=== PATIENT | female | born 1995 | race African-American/Black ===

== ENCOUNTER 2016-05-01 10:38 | Emergency (ER) | payer OTHER ==
[~2016-05-01] VITALS: Ht 165.1 cm; Wt 70.0 kg
[2016-05-01 10:39] VITALS: BP 111/74; PULSE 69; RESP 12; TEMP 97.5; O2SAT 97
[2016-05-01] MEDS ORDERED: SODIUM CHLOR 0.9% 1000 ML INJ 1,000 ML IV SCH (11:19)
[2016-05-01] MEDS ORDERED: ONDANSETRON HCL 4 MG/2 ML VIAL IVP ONE (11:30)
[2016-05-01] MEDS ORDERED: DICYCLOMINE HCL 20 MG/2 ML VIAL IM ONE (11:30)
[2016-05-01 12:02] LABS: AUTOMATED NEUTROPHIL # 10.7 TH/MM3 (1.8-7.7); BASOPHIL % 0.2 % (0.0-2.0); EOSINOPHIL # 0.2 TH/MM3 (0-0.4); EOSINOPHIL % 1.4 % (0.0-4.0); LYMPH % 6.7 % (9.0-44.0); LYMPHOCYTE # 0.9 TH/MM3 (1.0-4.8); MEAN CELL VOLUME 67.9 FL (80.0-100.0); MEAN CORPUSCULAR HEMOGLOBIN 22.3 PG (27.0-34.0); MEAN CORPUSCULAR HGB CONC 32.9 % (32.0-36.0); MONO % 7.7 % (0.0-8.0); PLATELET COUNT 362 TH/MM3 (150-450); RED BLOOD COUNT 5.45 MIL/MM3 (4.00-5.30); RED CELL DISTRIBUTION WIDTH 17.9 % (11.6-17.2); WHITE BLOOD COUNT 12.8 TH/MM3 (4.0-11.0)
[2016-05-01 12:04] LABS: BLOOD, URINE MOD (NEG); GLUCOSE,URINE NEG (NEG); KETONE, URINE NEG (NEG); MUCUS URINE FEW /lpf (OCC); NITRITE,URINE NEG (NEG); PH, URINE 5.5 (5.0-8.5); SQUAMOUS EPITHELIAL CELL URINE 4 /hpf (0-5); URINE COLOR YELLOW (YELLW/STRAW)
[2016-05-01 12:05] LABS: COMMENT (UR) CULT NOT INDICATED; CULTURE IF INDICATED CULT NOT INDICATED
[2016-05-01 12:07] LABS: HEMO FLAGS AUTO DIFF
[2016-05-01 12:20] LABS: ALT (GPT) 16 U/L (9-42); ANION GAP 5 MEQ/L (5-15); AST (GOT) 11 U/L (16-38); BICARBONATE 26.6 MEQ/L (21.0-32.0); BLOOD UREA NITROGEN 18 MG/DL (7-18); CHLORIDE 106 MEQ/L (98-107); GLOMERULAR FILTRATION RATE 87 ML/MIN (>89); POTASSIUM 4.2 MEQ/L (3.5-5.1); SODIUM (NA) 138 MEQ/L (136-145)
[2016-05-01 12:23] LABS: ALKALINE PHOSPHATASE 68 U/L (45-117); TOTAL BILIRUBIN ADULT 0.3 MG/DL (0.2-1.0)
[2016-05-01] MEDS ORDERED: IMOD2TAB3 PO (12:31)
--- NOTE | 2016-05-01 12:32 | PD ---
Data Data Last Documented VS Vital Signs Date Time Temp Pulse Resp B/P Pulse Ox O2 Delivery O2 Flow Rate FiO2 05/01/16 11:18 18 05/01/16 10:39 97.5 69 111/74 97 Room Air Orders Complete Blood Count With Diff (05/01/16 11:19) Comprehensive Metabolic Panel (05/01/16 11:19) Lipase (05/01/16 11:19) Urinalysis - C+S If Indicated (05/01/16 11:19) Iv Access Insert/Monitor (05/01/16 11:19) Ondansetron Inj (Zofran Inj) (05/01/16 11:30) Sodium Chlor 0.9% 1000 Ml Inj (Ns 1000 M (05/01/16 11:19) Dicyclomine Inj (Bentyl Inj) (05/01/16 11:30) Ed Urine Pregnancytest Poc (05/01/16 11:19) Labs Laboratory Tests Test 05/01/16 05/01/16 11:31 11:36 Urine Color YELLOW Urine Turbidity CLEAR Urine pH 5.5 Urine Specific [place] 1.024 Urine Protein NEG mg/dL Urine Glucose (UA) NEG mg/dL Urine Ketones NEG mg/dL Urine Occult Blood MOD Urine Nitrite NEG Urine Bilirubin NEG Urine Urobilinogen LESS THAN 2.0 MG/DL Urine Leukocyte Esterase TRACE Urine RBC LESS THAN 1 /hpf Urine WBC 1 /hpf Urine Squamous Epithelial 4 /hpf Cells Urine Mucus FEW /lpf Microscopic Urinalysis Comment CULT NOT INDICATED White Blood Count 12.8 TH/MM3 Red Blood Count 5.45 MIL/MM3 Hemoglobin 12.2 GM/DL Hematocrit 37.0 % Mean Corpuscular Volume 67.9 FL Mean Corpuscular Hemoglobin 22.3 PG Mean Corpuscular Hemoglobin 32.9 % Concent Red Cell Distribution Width 17.9 % Platelet Count 362 TH/MM3 Mean Platelet Volume 7.8 FL Neutrophils (%) (Auto) 84.0 % Lymphocytes (%) (Auto) 6.7 % Monocytes (%) (Auto) 7.7 % Eosinophils (%) (Auto) 1.4 % Basophils (%) (Auto) 0.2 % Neutrophils # (Auto) 10.7 TH/MM3 Lymphocytes # (Auto) 0.9 TH/MM3 Monocytes # (Auto) 1.0 TH/MM3 Eosinophils # (Auto) 0.2 TH/MM3 Basophils # (Auto) 0.0 TH/MM3 CBC Comment AUTO DIFF Sodium Level 138 MEQ/L Potassium Level 4.2 MEQ/L Chloride Level 106 MEQ/L Carbon Dioxide Level 26.6 MEQ/L Anion Gap 5 MEQ/L Blood Urea Nitrogen 18 MG/DL Creatinine 0.84 MG/DL Estimat Glomerular Filtration 87 ML/MIN Rate Random Glucose 87 MG/DL Calcium Level 8.8 MG/DL Total Bilirubin 0.3 MG/DL Aspartate Amino Transf 11 U/L (AST/SGOT) Alanine Aminotransferase 16 U/L (ALT/SGPT) Alkaline Phosphatase 68 U/L Total Protein 8.0 GM/DL Albumin 4.0 GM/DL Lipase 201 U/L MDM Supervised Visit with APOLINAR: Yes Narrative Course I, Dr. Arauz, have reviewed the advance practice practioner's documentation and am in agreement, met with the patient face to face, made the diagnosis, and the medical decision making was done by me. *My assessment and Findings: Healthy 20-year-old female here with nausea vomiting diarrhea. Diarrhea is her primary complaint. No abdominal pain. Abdominal examination is benign. Symptoms most consistent with gastroenteritis and less likely peritoneal pathology. Laboratory workup unremarkable patient was reassured and discharged home. Scripts Loperamide (Imodium A-D)2 Mg Tab2 Mg PO DIRECTED PRN (DIARRHEA) #18 TAB Ref 0 One tablet after each loose stool. Not to exceed 8 tablets per day. Prov:Vera Arauz MD 05/01/16 Vera Arauz MD May 01, 2016 12:32
--- NOTE | 2016-05-01 12:46 | PD ---
HPI Chief Complaint: GI Complaint Time Seen by Provider: 12:40 Travel History International Travel<30 days: No Contact w/Intl Traveler<30days: No Traveled to known affect area: No History of Present Illness HPI 20-year-old female that presents to the ED for evaluation of abdominal discomfort and nausea and vomiting as well as diarrhea. Per patient history since 6:30 this morning. Per patient nothing makes it better or worse. Per patient she's not been able to eat anything because she doesn't have an appetite and doesn't want to try anything. Vomiting has been yellow. No blood. Patient denies any blood in the stool but the stool itself is liquidy. She denies any chest pain or shortness of breath. No cough or runny nose. No fevers chills or sweats. Abdominal pain is cramping in nature. Does not radiate. Pain is 3 out of 10 and worse with bowel movements. He states having chills but no fevers or sweats. No illnesses sick. Per patient she did eat some thompson yesterday but nobody else got sick other than her. She denies any surgeries to her abdomen. She denies any other medical problems. No . No vaginal discharge or bleeding. PFSH Past Medical History Influenza Vaccination: No ?: Unknown LMP: 04/25/16 Social History Alcohol Use: No Tobacco Use: No Substance Use: No Allergies-Medications (Allergen,Severity, Reaction): Coded Allergies: No Known Allergies (Unverified , 05/01/16) Reported Meds & Prescriptions Reported Meds & Active Scripts Active Imodium A-D (Loperamide HCl) 2 Mg Tab 2 Mg PO DIRECTED PRN One tablet after each loose stool. Not to exceed 8 tablets per day. Review of Systems General / Constitutional: Positive: Chills, No: Fever, Weight Gain, Weight Loss, Other Eyes: No: Diploplia, Blurred Vision, Photophobia, Drainage, Redness, Foreign Body Sensation, Pain, Tearing, Blind Spots, Visual changes, Blindness, Other HENT: No: Headaches, Vertigo, Lightheadedness, Sore Throat, Rhinitis, Rhinorrhea, Congestion, Nosebleed, Neck Stiffness, Neck Pain, Masses, Gingival Bleeding, Dental Difficulties, Ear Discharge, Earache, Other Cardiovascular: No: Chest Pain or Discomfort, Palpitations, Irregular Rhythm, Tachycardia, Diaphoresis, Syncope, Dyspnea on exertion, Varicosities, Edema, Cyanosis, Varicosities, Phlebitis, Claudication, Other Respiratory: No: Cough, Shortness of Breath, Wheezing, Sneezing, Orthopnea, Hemoptysis, Stridor, Night Sweats, Pleuritic Pain, Other Gastrointestinal: Positive: Nausea, Vomiting, Diarrhea, Abdominal Pain, No: Hematemesis, Hematochezia, Constipation, Changes in Bowel Habits, Indigestion, Dysphagia, Loss of Appetite, Other Genitourinary: No: Urgency, Frequency, Dysuria, Nocturia, Hematuria, Decreased Urinary Output, Oliguria, Hesitancy, Dribbling, Incontinence, Pelvic Pain, Flank Pain, Dyspareunia, Discharge, Dysmenorrhea, Menorrhagia, Metorrhagia, Vaginal Bleeding, Other Musculoskeletal: No: Myalgias, Arthralgias, Limited ROM, Weakness, Cramping, Edema, Pain, Atrophy, Other Skin: No Rash, No Itching, No Dryness, No Lumps, No Hives, No Change in Pigmentation, No Change in nails, No Alopecia, No Lesions, No Breast Lumps, No Breast Tenderness, No Breast Swelling, No Other Neurologic: No: Weakness, Dizziness, Syncope, Focal Abnormalities, Coordination Problem, Tremor, Ataxia, Headache, Change in Mentation, Slurred Speech, Paresthesia, Incontinence, Seizures, Sensory Disturbance, Other Psychiatric: No: Anxiety, Depression, Suicidal Ideations, Disorder of Thought, Mood Disorder, Substance Abuse, Homicidal Ideation, Other Endocrine: No: Heat Intolerance, Cold Intolerance, Polyuria, Polydipsia, Other Hematologic/Lymphatic: No: Easy Bruising, Lymph Node Enlargement, Other Physical Exam Narrative GENERAL: SKIN: Warm and dry. HEAD: Atraumatic. Normocephalic. EYES: Pupils equal and round. No scleral icterus. No injection or drainage. ENT: No nasal bleeding or discharge. Mucous membranes pink and moist. Tongue is midline. No uvula deviation. NECK: Trachea midline. No JVD. CARDIOVASCULAR: Regular rate and rhythm. No murmurs, S3, S4. RESPIRATORY: No accessory muscle use. Clear to auscultation. Breath sounds equal bilaterally. GASTROINTESTINAL: Abdomen soft, non-tender with no obvious guarding, nondistended. Hepatic and splenic margins not palpable. MUSCULOSKELETAL: Extremities without clubbing, cyanosis, or edema. No obvious deformities. Full range of motion of the upper and lower extremities bilaterally. 2+ pulses bilaterally. NEUROLOGICAL: Awake and alert. No obvious cranial nerve deficits. Motor grossly within normal limits. Five out of 5 muscle strength in the arms and legs. Normal speech. PSYCHIATRIC: Appropriate mood and affect; insight and judgment normal. Data Data Last Documented VS Vital Signs Date Time Temp Pulse Resp B/P Pulse Ox O2 Delivery O2 Flow Rate FiO2 05/01/16 11:18 18 05/01/16 10:39 97.5 69 111/74 97 Room Air Orders Complete Blood Count With Diff (05/01/16 11:19) Comprehensive Metabolic Panel (05/01/16 11:19) Lipase (05/01/16 11:19) Urinalysis - C+S If Indicated (05/01/16 11:19) Iv Access Insert/Monitor (05/01/16 11:19) Ondansetron Inj (Zofran Inj) (05/01/16 11:30) Sodium Chlor 0.9% 1000 Ml Inj (Ns 1000 M (05/01/16 11:19) Dicyclomine Inj (Bentyl Inj) (05/01/16 11:30) Ed Urine Pregnancytest Poc (05/01/16 11:19) Labs Laboratory Tests Test 05/01/16 05/01/16 11:31 11:36 Urine Color YELLOW Urine Turbidity CLEAR Urine pH 5.5 Urine Specific [place] 1.024 Urine Protein NEG mg/dL Urine Glucose (UA) NEG mg/dL Urine Ketones NEG mg/dL Urine Occult Blood MOD Urine Nitrite NEG Urine Bilirubin NEG Urine Urobilinogen LESS THAN 2.0 MG/DL Urine Leukocyte Esterase TRACE Urine RBC LESS THAN 1 /hpf Urine WBC 1 /hpf Urine Squamous Epithelial 4 /hpf Cells Urine Mucus FEW /lpf Microscopic Urinalysis Comment CULT NOT INDICATED White Blood Count 12.8 TH/MM3 Red Blood Count 5.45 MIL/MM3 Hemoglobin 12.2 GM/DL Hematocrit 37.0 % Mean Corpuscular Volume 67.9 FL Mean Corpuscular Hemoglobin 22.3 PG Mean Corpuscular Hemoglobin 32.9 % Concent Red Cell Distribution Width 17.9 % Platelet Count 362 TH/MM3 Mean Platelet Volume 7.8 FL Neutrophils (%) (Auto) 84.0 % Lymphocytes (%) (Auto) 6.7 % Monocytes (%) (Auto) 7.7 % Eosinophils (%) (Auto) 1.4 % Basophils (%) (Auto) 0.2 % Neutrophils # (Auto) 10.7 TH/MM3 Lymphocytes # (Auto) 0.9 TH/MM3 Monocytes # (Auto) 1.0 TH/MM3 Eosinophils # (Auto) 0.2 TH/MM3 Basophils # (Auto) 0.0 TH/MM3 CBC Comment AUTO DIFF Sodium Level 138 MEQ/L Potassium Level 4.2 MEQ/L Chloride Level 106 MEQ/L Carbon Dioxide Level 26.6 MEQ/L Anion Gap 5 MEQ/L Blood Urea Nitrogen 18 MG/DL Creatinine 0.84 MG/DL Estimat Glomerular Filtration 87 ML/MIN Rate Random Glucose 87 MG/DL Calcium Level 8.8 MG/DL Total Bilirubin 0.3 MG/DL Aspartate Amino Transf 11 U/L (AST/SGOT) Alanine Aminotransferase 16 U/L (ALT/SGPT) Alkaline Phosphatase 68 U/L Total Protein 8.0 GM/DL Albumin 4.0 GM/DL Lipase 201 U/L MDM Medical Decision Making Medical Screen Exam Complete: Yes Emergency Medical Condition: Yes Medical Record Reviewed: Yes Interpretation(s) CBC & BMP Diagram 05/01/16 11:36 LFTs and Lipase WNL UA negative Differential Diagnosis Gastroenteritis versus indigestion versus gastritis versus food poisoning Narrative Course 20-year-old female that presents to the ED for evaluation of nausea vomiting and diarrhea. Patient was properly examined and was found to have signs and symptoms very consistent what appears to be gastroenteritis. Labs were done and patient was medicated with success of lessening her symptoms. Labs were essentially unremarkable. Exam is benign. Case discussed in my attending who evaluated the patient with me and agrees with plan. Patient does feel somewhat improved. Patient was reassured. At this time I believe the patient likely has gastroenteritis. Patient will be treated with Imodium, Zofran. Told to use as needed. Follow with PCP. See ED if any worsening symptoms. Diagnosis Primary Impression: Gastroenteritis Patient Instructions: General Instructions Departure Forms: School Release, Return to School Date: May 02, 2016 Tests/Procedures Additional Instructions: Take medication as prescribed. Liquid diet until better. Motrin or Tylenol for pain and fever and chills and sweats. See ED worsening symptoms. Follow up with PCP. Med/Other Pt SpecificInfo: Prescription(s) given Scripts Loperamide (Imodium A-D)2 Mg Tab2 Mg PO DIRECTED PRN (DIARRHEA) #18 TAB Ref 0 One tablet after each loose stool. Not to exceed 8 tablets per day. Prov:Vera Arauz MD 05/01/16 Disposition: 01 DISCHARGE HOME Condition: Stable Jeovany Jerome May 01, 2016 12:46
[2016-05-01] MEDS ORDERED: ZOFR4TAB PO (12:49)
[2016-05-01 13:09] LABS: SCAN/DIFF AUTO DIFF CONFIRMED
[2016-05-01 13:39] VITALS: BP 132/72; TEMP 97.9
== END 2016-05-01 13:47 | disposition home or self-care (01) ==
LOC: NEPE 10:38
DX: K52.9 Noninfective gastroenteritis and colitis, unspecified (principal)
CPT/HCPCS: 80053; 81001; 83690; 84703; 85025; 96372; 96374; 99284; J0500; J2405; J7030